=== PATIENT | male | born 1985 | race African-American/Black ===

== ENCOUNTER 2016-08-22 06:21 | Emergency (ER) | payer OTHER ==
[~2016-08-22] VITALS: Ht 182.9 cm; Wt 108.9 kg
[~2016-08-22 06:21] MED LIST: RISP0.253; TRAZ5POW
[2016-08-22 06:32] VITALS: BP 137/75
== END 2016-08-22 07:00 | disposition home or self-care (01) ==
LOC: ER 06:26
DX: B00.9 Herpesviral infection, unspecified (principal); F31.9 Bipolar disorder, unspecified; Z88.8 Allergy status to other drugs, medicaments and biological substances
CPT/HCPCS: A4606; Z7610